=== PATIENT | male | born 1975 | race Caucasian/White ===

== ENCOUNTER 2018-05-25 19:24 | Emergency (ER) | payer OTHER ==
[2018-05-25] MEDS ORDERED: EPINEPHrine 1 MG/ML 1 ML AMP IM STA (19:27)
[2018-05-25] MEDS ORDERED: ALBUTEROL NEBULIZED 2.5 MG/3 ML INHALATION STA (19:27)
[2018-05-25] MEDS ORDERED: SODIUM CHLORIDE 0.9% 1,000 ML IV STA ×2 (19:27→21:32)
--- NOTE | 2018-05-25 20:11 | ED ---
General Adult HPI - General Chief complaint: Allergic Reaction Stated complaint: Allergic reaction Time Seen by Provider: 05/25/18 19:27 Source: patient, RN notes reviewed, old records reviewed Mode of arrival: EMS Limitations: no limitations - History of Present Illness Initial comments: This is a 42-year-old male the ER for evaluation. Patient does say for evaluation regarding shortness of breath secondary to ALLERGIC reaction. No medical history, patient has had a sore throat for a few days took amoxicillin tonight and states that he feels like he is having ALLERGIC reaction to amoxicillin, shortness of breath is throat swelling tongue swelling. No known rashes. No prior history of ALLERGIC reaction to amoxicillin. - Related Data Home Medications Medication Instructions Recorded Confirmed Amoxicillin(Unknown) 1 cap PO ONCE PRN 05/25/18 05/25/18 Previous Rx's Medication Instructions Recorded Azithromycin [Zithromax] 500 mg PO DAILY #5 tab 05/25/18 Allergies Allergy/AdvReac Type Severity Reaction Status Date / Time amoxicillin Allergy Swelling Verified 05/25/18 19:52 sulfamethoxazole Allergy Rash/Hives Verified 05/25/18 19:52 [From Bactrim] trimethoprim [From Bactrim] Allergy Rash/Hives Verified 05/25/18 19:52 Review of Systems ROS Statement: Those systems with pertinent positive or pertinent negative responses have been documented in the HPI. ROS Other: All systems not noted in ROS Statement are negative. Past Medical History Past Medical History: No Reported History History of Any Multi-Drug Resistant Organisms: None Reported Past Surgical History: No Surgical Hx Reported Past Psychological History: No Psychological Hx Reported Smoking Status: Current every day smoker Past Alcohol Use History: Occasional Past Drug Use History: None Reported General Exam Limitations: no limitations General appearance: alert, in no apparent distress Head exam: Present: atraumatic, normocephalic, normal inspection Eye exam: Present: normal appearance, PERRL, EOMI. Absent: scleral icterus, conjunctival injection, periorbital swelling ENT exam: Present: normal exam, mucous membranes moist Neck exam: Present: normal inspection. Absent: tenderness, meningismus, lymphadenopathy Respiratory exam: Present: normal lung sounds bilaterally. Absent: respiratory distress, wheezes, rales, rhonchi, stridor Cardiovascular Exam: Present: regular rate, normal rhythm, normal heart sounds. Absent: systolic murmur, diastolic murmur, rubs, gallop, clicks GI/Abdominal exam: Present: soft, normal bowel sounds. Absent: distended, tenderness, guarding, rebound, rigid Extremities exam: Present: normal inspection, full ROM, normal capillary refill. Absent: tenderness, pedal edema, joint swelling, calf tenderness Back exam: Present: normal inspection Neurological exam: Present: alert, oriented X3, CN II-XII intact Psychiatric exam: Present: normal affect, normal mood Skin exam: Present: warm, dry, intact, normal color. Absent: rash Course Vital Signs 05/25/18 05/25/18 05/25/18 19:25 19:38 19:44 Temperature 99.8 F H Pulse Rate 86 82 Respiratory 18 20 Rate Blood Pressure 196/100 O2 Sat by Pulse 95 Oximetry 05/25/18 05/25/18 05/25/18 20:19 20:39 21:56 Temperature 99.8 F H Pulse Rate 80 103 H 104 H Respiratory 20 18 Rate Blood Pressure 180/101 135/85 O2 Sat by Pulse 97 95 Oximetry 05/25/18 22:31 Temperature Pulse Rate 81 Respiratory 18 Rate Blood Pressure 143/81 O2 Sat by Pulse 97 Oximetry - Reevaluation(s) Reevaluation #1: 05/25/18 21:29 A she monitored in ER for quite some time. Patient with significant improvement in symptoms throughout stay. Currently no stridor no angioedema EKG Findings - EKG Comments: EKG Findings:: EKG shows undetermined rhythm rate of 84, MI 160, QRS 84, QTC 450 Medical Decision Making - Medical Decision Making 42 male the ER for evaluation of ALLERGIC reaction. Patient will no longer take amoxicillin will discharge home on appropriate ALLERGIC therapy and patient at this point feels normal and can be discharged home - Lab Data Result diagrams: 05/25/18 19:32 05/25/18 19:32 Lab Results 05/25/18 05/25/18 05/25/18 Range/Units 19:32 19:32 21:50 WBC 10.8 H (3.8-10.6) k/uL RBC 4.97 (4.30-5.90) m/uL Hgb 15.6 (13.0-17.5) gm/dL Hct 47.2 (39.0-53.0) % MCV 95.0 (80.0-100.0) fL MCH 31.4 (25.0-35.0) pg MCHC 33.1 (31.0-37.0) g/dL RDW 12.8 (11.5-15.5) % Plt Count 229 (150-450) k/uL Neutrophils % 62 % Lymphocytes % 29 % Monocytes % 5 % Eosinophils % 2 % Basophils % 0 % Neutrophils # 6.8 (1.3-7.7) k/uL Lymphocytes # 3.1 (1.0-4.8) k/uL Monocytes # 0.6 (0-1.0) k/uL Eosinophils # 0.2 (0-0.7) k/uL Basophils # 0.0 (0-0.2) k/uL Sodium 141 (137-145) mmol/L Potassium 4.8 (3.5-5.1) mmol/L Chloride 104 (98-107) mmol/L Carbon Dioxide 25 (22-30) mmol/L Anion Gap 12 mmol/L BUN 21 H (9-20) mg/dL Creatinine 1.14 (0.66-1.25) mg/dL Est GFR (CKD-EPI)AfAm >90 (>60 ml/min/1.73 sqM) Est GFR (CKD-EPI)NonAf 78 (>60 ml/min/1.73 sqM) Glucose 80 (74-99) mg/dL Plasma Lactic Acid Miguel 1.1 (0.7-2.0) mmol/L Calcium 9.3 (8.4-10.2) mg/dL Phosphorus 3.1 (2.5-4.5) mg/dL Magnesium 1.9 (1.6-2.3) mg/dL Total Bilirubin 0.8 (0.2-1.3) mg/dL AST 50 (17-59) U/L ALT 56 (21-72) U/L Alkaline Phosphatase 79 (38-126) U/L Total Protein 7.4 (6.3-8.2) g/dL Albumin 4.4 (3.5-5.0) g/dL Disposition Clinical Impression: Strep throat Disposition: HOME SELF-CARE Condition: Good Instructions: Strep Throat (ED) Prescriptions: Azithromycin [Zithromax] 500 mg PO DAILY #5 tab Is patient prescribed a controlled substance at d/c from ED?: No Referrals: None,Stated [Primary Care Provider] - 1-2 days
[2018-05-25] MEDS ORDERED: LORazepam 2 MG/ML INJ IV STA (20:44)
[2018-05-25] MEDS ORDERED: AZITHROMYCIN 500 MG in SODIUM CHLORIDE 0.9% 250 ML IVPB STA (21:32)
[2018-05-25] MEDS ORDERED: MORPHINE SULFATE 4 MG/ML SYRINGE IV STA (21:32)
[2018-05-25] MEDS ORDERED: KETOROLAC 30 MG/ML 1 ML VIAL IVP STA (21:32)
[2018-05-25] MEDS ORDERED: DEXAMETHASONE SOD PHOSPHATE 10 MG/ML 1 ML VIAL IV STA (21:32)
[2018-05-25] MEDS ORDERED: ONDANSETRON 4 MG/2 ML VIAL IVP STA (21:32)
[2018-05-25 21:48] LABS: Basophils % (A) 0 %; Eosinophils # (A) 0.2 k/uL (0-0.7); Eosinophils % (A) 2 %; HCT 47.2 % (39.0-53.0); HGB 15.6 gm/dL (13.0-17.5); Lymphocytes # (A) 3.1 k/uL (1.0-4.8); Lymphocytes % (A) 29 %; MCH 31.4 pg (25.0-35.0); MCHC 33.1 g/dL (31.0-37.0); Mean Platelet Volume 8.1; Monocytes # (A) 0.6 k/uL (0-1.0); Monocytes % (A) 5 %; Neutrophils # (A) 6.8 k/uL (1.3-7.7); Neutrophils % (A) 62 %; Platelet Count 229 k/uL (150-450); RBC 4.97 m/uL (4.30-5.90); RDW 12.8 % (11.5-15.5); WBC 10.8 k/uL (3.8-10.6)
[2018-05-25 21:57] VITALS: RESP 18
[2018-05-25 22:01] LABS: ALT 56 U/L (21-72); AST 50 U/L (17-59); Albumin 4.4 g/dL (3.5-5.0); Alkaline Phosphatase 79 U/L (38-126); Anion Gap 12 mmol/L; Calcium 9.3 mg/dL (8.4-10.2); Carbon Dioxide 25 mmol/L (22-30); Chloride 104 mmol/L (98-107); Glucose 80 mg/dL (74-99); Magnesium 1.9 mg/dL (1.6-2.3); Phosphorus 3.1 mg/dL (2.5-4.5); Sodium 141 mmol/L (137-145); Total Bilirubin 0.8 mg/dL (0.2-1.3); Total Protein 7.4 g/dL (6.3-8.2)
[2018-05-25 22:04] LABS: Blood Urea Nitrogen 21 mg/dL (9-20); Potassium 4.8 mmol/L (3.5-5.1)
[2018-05-26 00:05] VITALS: BP 136/75; PULSE 79; TEMP 98.1
== END 2018-05-26 00:03 | disposition home or self-care (01) ==
LOC: EC 19:24
DX: J02.0 Streptococcal pharyngitis (principal); R06.02 Shortness of breath; F17.200 Nicotine dependence, unspecified, uncomplicated; Z88.0 Allergy status to penicillin; Z88.2 Allergy status to sulfonamides
CPT/HCPCS: 36415; 94640; 93005; 80053; 83605; 83735; 84100; 85025; 87040; 99285; 96365; 96366; 96375 ×5; 96361; 96372; J0171; J2060; J2270; J1100; J2405; J0456; J1885